=== PATIENT | male | born 1970 | race Caucasian/White ===

== ENCOUNTER 2020-05-23 10:14 | Day surgery (SDC) | payer BC ==
[2020-05-22 15:44] VITALS: BMI 32.0
--- NOTE | 2020-05-23 08:01 | HP ---
[facility] - Chief Complaint Chief Complaint: right shoulder pain - Past Medical History Allergies/Adverse Reactions: Allergies Allergy/AdvReac Type Severity Reaction Status Date / Time No Known Allergies Allergy Verified 05/22/20 15:35 - Current Medications Current Medications: Home Medications Medication Instructions Recorded NK [No Known Home Medication] 05/22/20 [facility] Physical Exam - Physical Examination General Appearance: Well Nourished, Well Developed, Alert & Oriented x3 ENT: Clear Lung: Normal air movement Extremities: Other (right shoulder- + ttp, decr rom, + neer, + mckinley, + empty can, nvi) Neurological: Intact, Alert, Oriented Satellite Impression/Plan - Impression/Plan Impression: right shoulder rct Operative Procedure: right shoulder arthroscopy with RCR, SAD Date to be Performed: 05/23/20
[2020-05-23] MEDS ORDERED: MIDAZOLAM HCL 2 MG/2 ML SINGLE DOSE VIAL ONE (10:29)
[2020-05-23] MEDS ORDERED: ROPIVACAINE HCL 0.5% 30ML VIAL ONE (10:29)
[2020-05-23] MEDS ORDERED: ONDANSETRON 4 MG/2 ML VIAL ONE (10:51)
[2020-05-23] MEDS ORDERED: ceFAZolin SODIUM 1 GM VIAL ONE (10:51)
[2020-05-23] MEDS ORDERED: DEXAMETHASONE SOD PHOSPHATE 4 MG/1 ML VIAL ONE (10:51)
[2020-05-23] MEDS ORDERED: LIDOCAINE HCL/PF 2% SDV 5ML VIAL ONE (10:51)
[2020-05-23] MEDS ORDERED: PROPOFOL 20 ML ONE ×2 (10:52)
[2020-05-23] MEDS ORDERED: BUPIVACAINE HCL/PF 0.5% (5MG/ML) 10 ML VIAL ONE (12:37)
--- NOTE | 2020-05-23 14:18 | OP ---
Operative Note - Note: Operative Date: 05/23/20 (deejay) Pre-Operative Diagnosis: right shoulder rct Operation: right shoulder arthroscopy with RCR, SAD Post-Operative Diagnosis: Same as Pre-op Surgeon: Rufino Ambriz Supervisor Mails: Shane Knott Anesthesiologist/CAGE TENDER: Milena Early Anesthesia: General, Local Specimens Removed: shavings Estimated Blood Loss (mls): 5
[2020-05-23] MEDS ORDERED: oxyCODONE HCL 5 MG TABLET PO PRN ×2 (14:26)
[2020-05-23] MEDS ORDERED: ONDANSETRON 4 MG/2 ML VIAL IVPUSH PRN (14:26)
[2020-05-23] MEDS ORDERED: ACETAMINOPHEN 1000 MG/100 ML VIAL (NON FORMULARY) IVPB PRN (14:28)
[2020-05-23] MEDS ORDERED: LACTATED RINGERS SOLUTION 1,000 ML IV SCH (14:30)
[2020-05-23 15:49] VITALS: TEMP 98
[2020-05-23 16:39] VITALS: BP 133/77; PULSE 72
--- NOTE | 2020-05-24 07:33 | OP ---
DATE OF OPERATION: 05/23/2020 PREOPERATIVE DIAGNOSIS: Right rotator cuff tear. POSTOPERATIVE DIAGNOSIS: Right rotator cuff tear. PROCEDURE: Right rotator cuff repair, arthroscopic, with SpeedBridge and accessory SwiveLock anchors. SURGICAL ATTENDING: Rufino Ambriz MD GROUND SUPPORT EQUIPMENT ASSEMBLER: PATRICE Trejo ANESTHESIA: Regional and general. CLOSURE: SpeedBridge as well as FiberWire and SwiveLock for the rotator cuff, 3-0 nylon for skin. ESTIMATED BLOOD LOSS: Negligible. COMPLICATIONS: None. CONDITION: To recovery in stable condition. DESCRIPTION OF OPERATIVE PROCEDURE: Patient taken to the operating room on May 23, 2020. Regional and general anesthesia was administered by the anesthesiologist. IV Kefzol was administered prophylactically prior to the case. The patient was placed in the beach chair position with all prominences well padded. The right shoulder was prepped and draped in the usual sterile fashion. First a posterior portal was made 2 fingerbreadths below the acromion first with a 15 blade followed by a blunt trocar. Circumferential exam of the glenohumeral joint revealed the following: intact glenoid humerus articular cartilage, intact labrum circumferentially, intact biceps and biceps anchor. No loose body in the axillary pouch. Intact subscapularis to its insertion. Looking superiorly, there was a large rotator cuff extending anterior to posterior. Fluid was drained from the glenohumeral joint, and the trocar was removed. The posterior trocar was redirected in the subacromial space, and accessory lateral and anterior portal was then made using a 15-blade followed by a blunt trocar. Large amount of subacromial bursal tissue was debrided using the shaver. A large undersurface acromial spur was encountered; this was burred down to the appropriate level, gaining sufficient height for the rotator cuff beneath. Coracoacromial ligament was identified and its attachment was further debrided. The undersurface of the acromion was made to be smooth from anterior to posterior. Looking inferiorly, the humeral head was covered with bursal tissue. The shaver and the ArthroCare device were used to clean this off, exposing a large rotator cuff tear. The bed on the greater tuberosity was cleaned with some soft tissue and burred slightly to encourage bleeding bone surface and to remove a slight spur on the superior aspect of the tuberosity to get further clearance subacromial space. The leading edge of the rotator cuff was also debrided to ensure healthy rotator cuff tissue to reimplant. Two medial row lateral anchors were placed at the articular margin, 1 more anteriorly and posteriorly, and each one of these anchors was preloaded with SutureTape sutures. All 4 limbs were passed from underneath the rotator cuff superiorly using the [employer] suture passer. One anterior limb and 1 posterior limb were fixated to an anterior lateral row anchor and 1 anterior limb and 1 posterior limb were fixated to a posterior lateral row anchor, in addition the rotator cuff to the greater tuberosity was slight area of extra rotator cuff that was not completely fixated with this repair, an accessory anterior anchor was made after 2 FiberWire sutures were placed in a horizontal mattress pointing anteriorly and pulled down to this anchor anteriorly. All the sutures were cut flush with the bone; after this had been done, probing revealed excellent stability in the repair to the greater tuberosity, range of motion revealed good stability and good clearance in the subacromial space. Fluid was drained. The portals were closed with 3-0 nylon, sterile pressure dressing was applied followed by shoulder immobilizer. Patient awakened from anesthesia and transferred to recovery room in stable condition, no complications. Estimated blood loss negligible. Rizwana [id number]
--- NOTE | 2020-05-25 15:18 | PATH ---
Surgical Pathology Report Patient Name: LACHO AVERY [facility]. Rec. #: [id number] /Age/Gender: 1970 (Age: 49) / M Account: [id number] Location: [facility] Taken: 05/23/2020 Received: 05/23/2020 Reported: 05/25/2020 Physicians: Rufino Ambriz M.D. Specimen(s) Received RIGHT SHOULDER ARTHROSCOPIC SHAVINGS Clinical History Tear, right shoulder Final Diagnosis SHOULDER, RIGHT, ARTHROSCOPIC SHAVINGS: FIBROSYNOVIAL TISSUE, BONE AND SKELETAL MUSCLE. Electronically Signed Sulma Sanders M.D. Gross Description Received in formalin, labeled "right shoulder arthroscopic shavings" is a 3.8 x 2.5 x 1.5 cm aggregate of light and yellow chen soft tissue. Ultrasonic Tester tissue is submitted in one cassette. AE/05/24/2020 ebram/05/24/2020
== END 2020-05-23 16:40 | disposition home or self-care (01) ==
LOC: FASU 10:14
PROVIDERS: ATTEND Orthopaedic Surgery
PROC: 0LQ14ZZ Repair Right Shoulder Tendon, Percutaneous Endoscopic Approach (ICD-10-PCS; principal; 2020-05-23 13:09)
PROC: 0RBJ4ZZ Excision of Right Shoulder Joint, Percutaneous Endoscopic Approach (ICD-10-PCS; 2020-05-23 13:09)
DX: M75.101 Unspecified rotator cuff tear or rupture of right shoulder, not specified as traumatic (principal)
CPT/HCPCS: 88304-TC; 94760